=== PATIENT | male | born 1935 | race Caucasian/White ===

== ENCOUNTER 2017-07-13 08:30 | Emergency (ER) | payer MEDICARE ==
[~2017-07-13] VITALS: Ht 185.4 cm; Wt 77.7 kg
[2017-07-13 11:41] LABS: CULTURE INDICATED? YES; MICROSCOPIC INDICATED
[2017-07-13 11:46] VITALS: BP 162/81
== END 2017-07-13 12:42 | disposition home or self-care (01) ==
LOC: ED 10:33
DX: T83.091A Other mechanical complication of indwelling urethral catheter, initial encounter (principal); R33.9 Retention of urine, unspecified; I10 Essential (primary) hypertension; I25.2 Old myocardial infarction; Z87.891 Personal history of nicotine dependence
CPT/HCPCS: 81001; 87086; 99284

== ENCOUNTER 2017-07-18 11:41 | Inpatient (IN) | payer MEDICARE ==
[~2017-07-18] VITALS: Ht 185.4 cm; Wt 76.0 kg
[2017-07-18 13:32] LABS: MICROSCOPIC INDICATED
[2017-07-18 13:33] LABS: CULTURE INDICATED? YES
[2017-07-18 13:58] LABS: BASOPHILS # (AUTO) 0.07 x10^3/uL (0-0.1); BASOPHILS % (AUTO) 1 % (0-1); EOSINOPHILS % (AUTO) 3 % (1-7); LYMPHOCYTES # (AUTO) 2.31 x10^3/uL (1-3.4); LYMPHOCYTES % (AUTO) 25 % (22-44); MD NO; MEAN CORPUSCULAR HEMOGLOBIN 32.2 pg (27.5-34.5); MEAN CORPUSCULAR VOLUME 94.8 fL (81-97); MEAN PLATELET VOLUME 10.2 fL (7.4-10.4); MONOCYTES # (AUTO) 0.53 x10^3/uL (0.2-0.8); MONOCYTES % (AUTO) 6 % (2-9); NEUTROPHILS # (AUTO) 6.17 x10^3/uL (1.8-6.8); NEUTROPHILS % (AUTO) 66 % (42-75); PLATELET COUNT 139 x10^3/uL (130-400); RED BLOOD COUNT 5.11 x10^6/uL (4.38-5.82)
[2017-07-18] MEDS ORDERED: SODIUM CHLORIDE FLUSH 10ML SYR IVF ONE (14:00)
[2017-07-18 14:05] LABS: INTERNATIONAL NORMALIZED RATIO 1.12 (0.93-1.1); PROTHROMBIN TIME 11.6 Seconds (9.6-11.5)
[2017-07-18 14:11] LABS: ALANINE AMINOTRANSFERASE 23 U/L (12-78); ALBUMIN 3.6 g/dL (3.4-5.0); ANION GAP 8 mmol/L (5-15); CALCIUM 8.3 mg/dL (8.5-10.1); CHLORIDE 108 mmol/L (98-107); CREATININE 1.79 mg/dL (0.7-1.3)
[2017-07-18 14:13] LABS: ALKALINE PHOSPHATASE 63 U/L (45-117); BILIRUBIN,TOTAL 0.7 mg/dL (0.2-1.0); TOTAL PROTEIN 6.7 g/dL (6.4-8.2)
[2017-07-18 14:17] LABS: ACETONE, SERUM Negative (Negative)
[2017-07-18] MEDS ORDERED: CEFTRIAXONE PMX 1GM/50ML 50 ML IV ONE (14:30)
[2017-07-18] MEDS ORDERED: METHYLPRED PO (14:45)
[2017-07-18] MEDS ORDERED: ASPI-496 PO (14:51)
[2017-07-18] MEDS ORDERED: ATOR-2 PO (14:51)
[2017-07-18] MEDS ORDERED: FLUT1DIS IH (14:51)
[2017-07-18] MEDS ORDERED: FOLI-17 PO (14:51)
[2017-07-18] MEDS ORDERED: POTA20PA25 PO (14:51)
[2017-07-18] MEDS ORDERED: LISI-167 PO (14:51)
[2017-07-18] MEDS ORDERED: CARV3.1212 PO (14:51)
[2017-07-18] MEDS ORDERED: CEFTRIAXONE PMX 1GM/50ML 50 ML ONE (14:55)
[2017-07-18] MEDS ORDERED: hydrALAzine 20 MG/ML, 1ML IVPush PRN (15:00)
[2017-07-18] MEDS ORDERED: ONDANSETRON 2MG/ML, 2ML IVPush PRN (15:00)
[2017-07-18] MEDS ORDERED: POLYETHYLENE GLYCOL 17 GM PACKET PO PRN (15:00)
[2017-07-18] MEDS: CEFTRIAXONE PMX 1GM/50ML 50 ML IV SCH (15:00)
[2017-07-18] MEDS ORDERED: BISACODYL 10 MG SUPP PR PRN (15:00)
[2017-07-18] MEDS ORDERED: DOCUSATE 100 MG CAPSULE PO PRN (15:00)
[2017-07-18] MEDS: SODIUM CHLORIDE 0.9% 1,000 ML IV SCH (17:42)
[2017-07-18] MEDS: ATORVASTATIN 40 MG TABLET PO SCH (22:07)
[2017-07-18] MEDS: CARVEDILOL 3.125 MG TABLET PO SCH (22:07)
[2017-07-18 22:13] VITALS: BP 137/80
[2017-07-18] MEDS: ACETAMINOPHEN 325 MG TABLET PO PRN (22:54)
[2017-07-19 02:30] VITALS: BP 126/66
[2017-07-19] MEDS: SODIUM CHLORIDE 0.9% 1,000 ML IV SCH (04:28)
[2017-07-19 05:57] LABS: ANION GAP 8 mmol/L (5-15); CALCIUM 8.4 mg/dL (8.5-10.1); CHLORIDE 112 mmol/L (98-107)
[2017-07-19 05:58] LABS: CREATININE 1.44 mg/dL (0.7-1.3)
[2017-07-19 06:09] LABS: BASOPHILS # (AUTO) 0.04 x10^3/uL (0-0.1); BASOPHILS % (AUTO) 1 % (0-1); EOSINOPHILS # (AUTO) 0.28 x10^3/uL (0-0.4); EOSINOPHILS % (AUTO) 4 % (1-7); LYMPHOCYTES # (AUTO) 2.07 x10^3/uL (1-3.4); LYMPHOCYTES % (AUTO) 29 % (22-44); MD NO; MEAN CORPUSCULAR HEMOGLOBIN 31.8 pg (27.5-34.5); MEAN CORPUSCULAR HGB CONC 33.2 g/dL (33.2-36.2); MEAN CORPUSCULAR VOLUME 95.8 fL (81-97); MEAN PLATELET VOLUME 10.7 fL (7.4-10.4); MONOCYTES # (AUTO) 0.52 x10^3/uL (0.2-0.8); MONOCYTES % (AUTO) 7 % (2-9); NEUTROPHILS # (AUTO) 4.27 x10^3/uL (1.8-6.8); NEUTROPHILS % (AUTO) 60 % (42-75); PLATELET COUNT 139 x10^3/uL (130-400); RED BLOOD COUNT 4.88 x10^6/uL (4.38-5.82)
[2017-07-19 07:48] VITALS: BP 127/70
[2017-07-19] MEDS ORDERED: POTASSIUM CHLORIDE 20 MEQ TAB.ER.PRT PO SCH (09:00)
[2017-07-19] MEDS ORDERED: TEMPLATE NON-FORMULARY MED. (Fluticasone/Salmeterol** (Advair 100-50 Diskus**) 1 PUFF) IH SCH (09:00)
[2017-07-19] MEDS ORDERED: GUAIFENESIN ER 600 MG TABLET PO SCH (09:00)
[2017-07-19] MEDS: FOLIC ACID 1 MG TABLET PO SCH (11:24)
[2017-07-19] MEDS: LISINOPRIL 10 MG TABLET PO SCH (11:24)
[2017-07-19] MEDS: GUAIFENESIN/DM 200-20MG, 10ML UDC PO SCH ×3 (11:24→21:41)
[2017-07-19] MEDS: CARVEDILOL 3.125 MG TABLET PO SCH ×2 (11:25→21:40)
[2017-07-19] MEDS: ASPIRIN 81 MG TABLET EC PO SCH (11:25)
[2017-07-19] MEDS: FLUTICASONE/VILANTEROL 100-25MCG/INH INH SCH (14:00)
[2017-07-19 15:34] VITALS: BP 101/57
[2017-07-19] MEDS: CEFTRIAXONE PMX 1GM/50ML 50 ML IV SCH (16:27)
[2017-07-19 19:28] VITALS: BP 107/66
[2017-07-19] MEDS: ATORVASTATIN 40 MG TABLET PO SCH (21:41)
[2017-07-19] MEDS: ACETAMINOPHEN 325 MG TABLET PO PRN (21:43)
[2017-07-20] MEDS: GUAIFENESIN/DM 200-20MG, 10ML UDC PO SCH ×4 (02:15→19:43)
[2017-07-20 02:30] VITALS: BP 127/74
[2017-07-20 04:50] LABS: ANION GAP 5 mmol/L (5-15); CALCIUM 7.8 mg/dL (8.5-10.1); CHLORIDE 113 mmol/L (98-107); CREATININE 1.28 mg/dL (0.7-1.3)
[2017-07-20 08:30] VITALS: BP 117/70
[2017-07-20] MEDS ORDERED: CEFD300C37 PO (08:41)
[2017-07-20] MEDS: LISINOPRIL 10 MG TABLET PO SCH (09:19)
[2017-07-20] MEDS: FOLIC ACID 1 MG TABLET PO SCH (09:19)
[2017-07-20] MEDS: CARVEDILOL 3.125 MG TABLET PO SCH ×2 (09:19→19:43)
[2017-07-20] MEDS: ASPIRIN 81 MG TABLET EC PO SCH (09:19)
[2017-07-20] MEDS: FLUTICASONE/VILANTEROL 100-25MCG/INH INH SCH (09:20)
[2017-07-20 14:51] VITALS: BP 115/64
[2017-07-20] MEDS: CEFTRIAXONE PMX 1GM/50ML 50 ML IV SCH (15:06)
[2017-07-20 18:47] VITALS: BP 113/66
[2017-07-20] MEDS: ATORVASTATIN 40 MG TABLET PO SCH (19:43)
[2017-07-20] MEDS: ACETAMINOPHEN 325 MG TABLET PO PRN (19:50)
[2017-07-21 01:53] VITALS: BP 101/57
[2017-07-21] MEDS: GUAIFENESIN/DM 200-20MG, 10ML UDC PO SCH ×4 (03:22→20:18)
[2017-07-21 08:01] VITALS: BP 115/63
[2017-07-21] MEDS: FOLIC ACID 1 MG TABLET PO SCH (09:32)
[2017-07-21] MEDS: CARVEDILOL 3.125 MG TABLET PO SCH ×2 (09:32→20:19)
[2017-07-21] MEDS: LISINOPRIL 10 MG TABLET PO SCH (09:32)
[2017-07-21] MEDS: ASPIRIN 81 MG TABLET EC PO SCH (09:32)
[2017-07-21] MEDS: FLUTICASONE/VILANTEROL 100-25MCG/INH INH SCH (09:33)
[2017-07-21 15:09] VITALS: BP 119/66
[2017-07-21] MEDS: CEFTRIAXONE PMX 1GM/50ML 50 ML IV SCH (15:54)
[2017-07-21 19:24] VITALS: BP 95/58
[2017-07-21] MEDS: ATORVASTATIN 40 MG TABLET PO SCH (20:18)
[2017-07-21 20:19] VITALS: BP 101/57
[2017-07-22 02:16] VITALS: BP 125/76
[2017-07-22] MEDS: GUAIFENESIN/DM 200-20MG, 10ML UDC PO SCH ×2 (02:18→09:59)
[2017-07-22 08:22] VITALS: BP 132/82
[2017-07-22] MEDS: LISINOPRIL 10 MG TABLET PO SCH (09:59)
[2017-07-22] MEDS: FOLIC ACID 1 MG TABLET PO SCH (09:59)
[2017-07-22] MEDS: FLUTICASONE/VILANTEROL 100-25MCG/INH INH SCH (10:00)
[2017-07-22] MEDS: CARVEDILOL 3.125 MG TABLET PO SCH (10:00)
[2017-07-22] MEDS: ASPIRIN 81 MG TABLET EC PO SCH (10:01)
[2017-07-22 14:18] VITALS: BP 133/84
== END 2017-07-22 15:12 | disposition home or self-care (01) | DRG 682 ==
LOC: ED 12:54 → EDIP 14:23 → 3NE 16:19
PROVIDERS: ADMIT Hospitalist; ATTEND Hospitalist
PROC: 0T9B70Z Drainage of Bladder with Drainage Device, Via Natural or Artificial Opening (ICD-10-PCS; principal; 2017-07-18)
DX: N17.0 Acute kidney failure with tubular necrosis (principal); G93.41 Metabolic encephalopathy; I27.20 Pulmonary hypertension, unspecified; N30.00 Acute cystitis without hematuria; F03.90 Unspecified dementia, unspecified severity, without behavioral disturbance, psychotic disturbance, mood disturbance, and anxiety; J98.11 Atelectasis; I10 Essential (primary) hypertension; I25.10 Atherosclerotic heart disease of native coronary artery without angina pectoris; I25.2 Old myocardial infarction; R91.8 Other nonspecific abnormal finding of lung field; I71.4 Abdominal aortic aneurysm, without rupture; J44.9 Chronic obstructive pulmonary disease, unspecified; K52.9 Noninfective gastroenteritis and colitis, unspecified; Z66 Do not resuscitate; Z83.3 Family history of diabetes mellitus; Z95.2 Presence of prosthetic heart valve; Z87.891 Personal history of nicotine dependence; Z86.79 Personal history of other diseases of the circulatory system; Z82.49 Family history of ischemic heart disease and other diseases of the circulatory system
CPT/HCPCS: 36415; 71045; 71250; 76770; 80048; 80053; 81001; 82010; 82140; 82436; 82570; 83605; 84133; 84300; 85025; 85610; 87086; 93005; 93306; 96365; J0696; J7030

== ENCOUNTER → 2017-10-20 | Outpatient (CLI) | payer MEDICARE ==
[~2017-10-20] MED LIST: ASPI-496 PO; ATOR-2 PO; CALC200T3 PO; CARV3.1212 PO; CEFD300C37 PO; CYAN1TAB29 PO; FLUT1DIS IH; FOLI-17 PO; FURO20TA3 PO; IRON PO; LISI-167 PO; METHYLPRED PO; NAPROXEN PO; POTA20PA25 PO; SMZ/TMP DS PO; TAMS0.4C2 PO
[2017-10-20 11:28] LABS: ALANINE AMINOTRANSFERASE 15 U/L (12-78); ALBUMIN 3.4 g/dL (3.4-5.0); ANION GAP 6 mmol/L (5-15); CALCIUM 8.4 mg/dL (8.5-10.1); CHLORIDE 109 mmol/L (98-107); CREATININE 2.37 mg/dL (0.7-1.3)
[2017-10-20 11:31] LABS: ALKALINE PHOSPHATASE 47 U/L (45-117); BILIRUBIN,TOTAL 0.8 mg/dL (0.2-1.0)
[2017-10-20 12:04] LABS: MICROSCOPIC INDICATED
[2017-10-21 09:18] LABS: BASOPHILS # (AUTO) 0.03 x10^3/uL (0-0.1); BASOPHILS % (AUTO) 1 % (0-1); EOSINOPHILS # (AUTO) 0.19 x10^3/uL (0-0.4); EOSINOPHILS % (AUTO) 3 % (1-7); LYMPHOCYTES # (AUTO) 2.34 x10^3/uL (1-3.4); LYMPHOCYTES % (AUTO) 40 % (22-44); MD NO; MEAN CORPUSCULAR HEMOGLOBIN 31.5 pg (27.5-34.5); MEAN CORPUSCULAR HGB CONC 32.9 g/dL (33.2-36.2); MEAN PLATELET VOLUME 11.5 fL (7.4-10.4); MONOCYTES # (AUTO) 0.28 x10^3/uL (0.2-0.8); MONOCYTES % (AUTO) 5 % (2-9); NEUTROPHILS # (AUTO) 2.96 x10^3/uL (1.8-6.8); NEUTROPHILS % (AUTO) 51 % (42-75); PLATELET COUNT 137 x10^3/uL (130-400); RED BLOOD COUNT 4.54 x10^6/uL (4.38-5.82); RED CELL DISTRIBUTION WIDTH 14.6 % (9.4-14.8)
== END | disposition home or self-care (01) ==
LOC: STAR 10:11
PROVIDERS: ATTEND Urology
DX: Z01.818 Encounter for other preprocedural examination (principal); J44.9 Chronic obstructive pulmonary disease, unspecified; R33.9 Retention of urine, unspecified; Z95.2 Presence of prosthetic heart valve
CPT/HCPCS: 36415; 71046; 80053; 81001; 85025; 87077; 87086; 87186; 93005

== ENCOUNTER 2017-11-03 11:29 | Observation (INO) | payer MEDICARE ==
[~2017-11-03] VITALS: Ht 182.9 cm; Wt 64.4 kg
[~2017-11-03 11:29] MED LIST changes: +SUGAMMADEX 200 MG/2 ML IVPush ONE
[2017-11-03] MEDS ORDERED: LACTATED RINGERS 1,000 ML IV SCH (11:49)
[2017-11-03] MEDS ORDERED: ALBUTEROL SULFATE 2.5 MG/3 ML ONE (12:15)
[2017-11-03] MEDS ORDERED: PROPOFOL 10 MG/ML, 20ML ONE (13:00)
[2017-11-03] MEDS ORDERED: PHENYLEPHRINE 10 MG/ML ONE (13:00)
[2017-11-03] MEDS ORDERED: ONDANSETRON 2MG/ML, 2ML IVPush PRN (15:00)
[2017-11-03] MEDS ORDERED: HYDROmorphone 1 MG/ML, 1ML IV PRN (15:30)
[2017-11-03] MEDS ORDERED: OXYcodone 5 MG/5 ML ORAL.SOL UDC PO PRN (15:30)
[2017-11-03] MEDS ORDERED: HYDROcodone/APAP 7.5-325MG/15ML UDC PO PRN (15:30)
[2017-11-03] MEDS ORDERED: MEPERIDINE/PF 25MG/0.5ML IVPush PRN (15:30)
[2017-11-03] MEDS ORDERED: ACETAMINOPHEN 325 MG TABLET PO PRN (15:30)
[2017-11-03] MEDS ORDERED: FENTANYL PF 100 MCG/2ML IV PRN (15:30)
[2017-11-03] MEDS ORDERED: morphine SULFATE 10 MG/ML, 1ML IV PRN (15:30)
[2017-11-03 17:15] VITALS: BP 109/62
[2017-11-03] MEDS: CARVEDILOL 3.125 MG TABLET PO SCH (18:00)
[2017-11-03 20:19] VITALS: BP 88/49
[2017-11-03] MEDS ORDERED: ATORVASTATIN 40 MG TABLET PO SCH (21:00)
[2017-11-03] MEDS: POTASSIUM CHLORIDE 20 MEQ in D5%-0.9% NACL 1,000 ML IV SCH (21:41)
[2017-11-04 00:07] VITALS: BP 88/49
[2017-11-04] MEDS: CARVEDILOL 3.125 MG TABLET PO SCH (02:27)
[2017-11-04 04:03] VITALS: BP 91/48
[2017-11-04 05:22] LABS: ANION GAP 8 mmol/L (5-15); CHLORIDE 113 mmol/L (98-107); CREATININE 1.64 mg/dL (0.7-1.3)
[2017-11-04 06:49] VITALS: BP 97/47
[2017-11-04] MEDS: POTASSIUM CHLORIDE 20 MEQ in D5%-0.9% NACL 1,000 ML IV SCH (08:33)
[2017-11-04] MEDS ORDERED: FOLIC ACID 1 MG TABLET PO SCH (09:00)
[2017-11-04] MEDS ORDERED: LISINOPRIL 10 MG TABLET PO SCH (09:00)
[2017-11-04] MEDS ORDERED: NAPROXEN 500 MG TABLET PO SCH (09:00)
[2017-11-04] MEDS ORDERED: FERROUS SULFATE 325 MG TABLET PO SCH (09:00)
[2017-11-04] MEDS ORDERED: FLUTICASONE/VILANTEROL 100-25MCG/INH INH SCH (09:00)
[2017-11-04] MEDS ORDERED: FUROSEMIDE 20 MG TABLET PO SCH (09:00)
[2017-11-04] MEDS ORDERED: TAMSULOSIN 0.4 MG CAP.ER.24H PO SCH (09:00)
[2017-11-04 13:01] VITALS: BP 92/53
== END 2017-11-04 15:48 | disposition home or self-care (01) ==
LOC: OUT 11:29 → 4NOR 17:05 → OUT 22:16 → DCLOUNGE 11-04 15:37
PROVIDERS: ADMIT Urology; ATTEND Urology
DX: N40.1 Benign prostatic hyperplasia with lower urinary tract symptoms (principal); N32.89 Other specified disorders of bladder; R33.8 Other retention of urine; I10 Essential (primary) hypertension
CPT/HCPCS: 36415; 52630; 80048; 85018; 88305; 94640; G0378; J2370; J2704; J3010; J3480; J7042; J7613